=== PATIENT | male | born 1995 | race Caucasian/White ===

== ENCOUNTER 2019-12-04 20:55 | Emergency (ER) | payer OTHER ==
--- NOTE | 2019-12-04 21:40 | ER Document Report ---
ED Medical Screen (RME) - General Chief Complaint: Fever Stated Complaint: FEVER,SHORTNESS OF BREATH,CHILLS,COUGHING RED STUF Time Seen by Provider: 12/04/19 21:33 Notes: 24-year-old male presents with fever, dyspnea, productive cough with "red stuff," and abdominal pain since yesterday. T-max 103. Patient states left upper quadrant pain. Patient also states sore throat. Lungs clear to auscultation bilaterally. Regular rate and rhythm. Abdomen soft, nontender. Pharynx mildly erythematous, tonsils mild hypertrophy with exudates. I have greeted and performed a rapid initial assessment of this patient. A comprehensive ED assessment and evaluation of the patient, analysis of test results and completion of the medical decision making process with be conducted by additional ED providers. - Related Data Allergies/Adverse Reactions: No Known Allergies Allergy (Unverified 12/04/19 21:33) Physical Exam - Vital signs Vitals: Temp Pulse Resp BP Pulse Ox 99.8 F 114 H 20 131/83 H 97 12/04/19 21:06 12/04/19 21:06 12/04/19 21:06 12/04/19 21:06 12/04/19 21:06 Course - Vital Signs Vital signs: Temp Pulse Resp BP Pulse Ox 99.8 F 114 H 20 131/83 H 97 12/04/19 21:06 12/04/19 21:06 12/04/19 21:06 12/04/19 21:06 12/04/19 21:06
--- NOTE | 2019-12-04 22:15 | RADIOLOGY REPORT (SQ) ---
EXAM DESCRIPTION: XR CHEST 2 VIEWS COMPLETED DATE/TME: 12/04/2019 21:38 CLINICAL HISTORY: 24 years, Male, cough, fever COMPARISON: None. NUMBER OF VIEWS: 2 TECHNIQUE: LIMITATIONS: None. FINDINGS: Cardiomediastinal silhouette is normal. Lungs are grossly clear. No effusion. No pneumothorax. Visualized bones are unremarkable IMPRESSION: No acute intrathoracic process is identified. copyright 2010 [employer]- All Rights Reserved
--- NOTE | 2019-12-04 23:43 | ER Document Report ---
ED General - General Chief Complaint: Fever Stated Complaint: FEVER,SHORTNESS OF BREATH,CHILLS,COUGHING RED STUF Time Seen by Provider: 12/04/19 21:33 Primary Care Provider: DOLORES NIEVES [Primary Care Provider] - 12/08/19 - [facility] Notes: Patient is a 24-year-old male who presents to the ED complaining of nasal congestion/discharge, dry nonproductive cough, sore throat, chills, body ache 4 days. Patient states that he is still eating and drinking without difficulties, but does have a decreased p.o. intake. Patient states that he does feel shortness of breath on occasion, but not consistently. He is still urinating normally having normal bowel movements. Patient has been using some [id number] meds for symptoms. He denies any significant past medical history including cardiopulmonary history and immunocompromised conditions. Patient denies any smoking or IV drug use. Denies any prolonged immobilization, distance travel, recent surgery/trauma, personal cancer history, hormone use, smoking, or previous DVT/PE. Denies any current headache, neck pain, chest pain, palpitations, syncope, wheeze, abdominal pain, nausea/vomiting/diarrhea, urinary retention, dysuria, hematuria, or rash. - Related Data Allergies/Adverse Reactions: No Known Allergies Allergy (Unverified 12/04/19 21:33) Past Medical History - Social History Smoking Status: Former Smoker Family History: Reviewed & Not Pertinent Patient has suicidal ideation: No Patient has homicidal ideation: No Review of Systems - Review of Systems -: Yes All other systems reviewed and negative Physical Exam - Vital signs Vitals: Temp Pulse Resp BP Pulse Ox 99.8 F 114 H 20 131/83 H 97 12/04/19 21:06 12/04/19 21:06 12/04/19 21:06 12/04/19 21:06 12/04/19 21:06 - Notes Notes: PHYSICAL EXAMINATION: GENERAL: Well-appearing, well-nourished and in no acute distress. A&Ox4. Answers questions appropriately. Moves comfortably w/o notable distress HEAD: Atraumatic, normocephalic. EYES: Pupils equal round and reactive to light, extraocular movements intact, sclera anicteric, conjunctiva are normal. ENT: EAC clear b/l. TM's intact b/l without erythema, fluid, or perforation. Nares patent and with clear discharge. oropharynx no erythema without exudates. 2+ tonsilar hypertrophy with erythema and b/l exudate. No palatine shift. Uvula midline. No tongue protrusion. No drooling, hoarseness, or airway compromise. Moist mucous membranes. No sinus tenderness. NECK: Normal range of motion, supple without lymphadenopathy. No rigidi ty/meningismus. LUNGS: Breath sounds clear to auscultation bilaterally and equal. No wheezes rales or rhonchi. No retractions HEART: Regular rate and rhythm without murmurs, rubs, gallops. ABDOMEN: Soft, nontender, nondistended abdomen. No guarding, no rebound. Normal bowel sounds present. No CVA tenderness bilaterally. Extremities: No edema. Daniel negative bilaterally. No lower extremity asymmetry. NEUROLOGICAL: Normal speech, normal gait. PSYCH: Normal mood, normal affect. SKIN: Warm, Dry, normal turgor, no rashes or lesions noted. Course - Re-evaluation Re-evalutation: 12/05/19 01:[address] Quijano who is in agreement with dispo/plan: Patient is an afebrile, well-hydrated, 24-year-old male who presents to the emergency department with an acute URI/pharyngitis, suspect viral. Vitals are a cceptable without significant tachycardia, tachypnea, or hypoxia. PE is otherwise unremarkable. He is nontoxic-appearing and is tolerating p.o. without difficulty. Lungs are clear to auscultation bilaterally. Labs acceptable. CXR neg. D-dimer negative. [place]/influenza neg. Rapid strep was negative with a throat culture pending. No further labs or imaging warranted at this time. Low suspicion for any ACS, PE, pneumothorax, pericarditis, dissection, meningitis, sepsis, peritonsillar/pharyngeal abscess, respiratory compromise, Antonio's, pneumonia, or other emergent systemic condition at this time. Patient is aware this condition can change from initial presentation and he needs to monitor symptoms closely. Conservative measures otherwise for symptoms. Recheck with your PCM in 2-3 days. Return to the ED with any worsening/concerning symptoms otherwise as reviewed in discharge. Patient is in agreement. - Vital Signs Vital signs: Temp Pulse Resp BP Pulse Ox 98.7 F 114 H 22 H 113/79 98 12/04/19 23:26 12/04/19 23:26 12/05/19 01:01 12/05/19 01:00 12/05/19 01:01 - Laboratory Result Diagrams: 12/04/19 23:21 12/04/19 23:21 Laboratory results interpreted by me: 12/04/19 12/04/19 23:21 23:21 WBC 11.9 H Absolute Neuts (auto) 9.0 H Sodium 136.5 L Chloride 97 L Lipase < 10.0 L Discharge - Discharge Clinical Impression: Acute URI Condition: Stable Disposition: HOME, SELF-CARE Instructions: Upper Respiratory Illness ([facility]), Viral Syndrome ([facility]) Additional Instructions: Maintain adequate fluid intake tylenol/ibuprofen as needed alternating every 3 hours for fever/body ache over the counter cold medication as needed for symptoms Humidified air may help Wash your hands regularly Wear a mask when coughing F/u: with your PCM in 2-3 days for a recheck Return to the ED with any fever, altered mental status/behavior, chest pain, palpitations, syncope, headache, neck pain/stiffness, shortness of breath, chest pains, wheezing, drooling, trouble swallowing/breathing, abdominal pain, n/v/d, rash, or worsening/concerning symptoms otherwise. Prescriptions: Albuterol Sulfate [Proair HFA Inhalation Aerosol 8.5 gm MDI] 2 puff IH Q4H PRN #1 mdi PRN Reason: Referrals: [facility] [Primary Care Provider] - 12/08/19
[2019-12-04 23:46] LABS: ABSOLUTE EOSINOPHILS # (AUTO) 0.1 10^3/uL (0.0-0.6); ABSOLUTE LYMPHOCYTES (AUTO) 1.7 10^3/uL (0.5-4.7); ABSOLUTE MONOCYTES (AUTO) 1.1 10^3/uL (0.1-1.4); BASOPHILS % (AUTO) 0.3 % (0-2); EOSINOPHILS % (AUTO) 0.6 % (0-6); HEMATOCRIT 45.7 % (37.9-51.0); HEMOGLOBIN 16.2 g/dL (13.5-17.0); LYMPHOCYTES % (AUTO) 14.6 % (13-45); MEAN CORPUSCULAR HEMOGLOBIN 31.6 pg (27.0-33.4); MEAN CORPUSCULAR HGB CONC 35.4 g/dL (32.0-36.0); MEAN CORPUSCULAR VOLUME 89 fl (80-97); MONOCYTES % (AUTO) 9.5 % (3-13); PLATELET COUNT 158 10^3/uL (150-450); RED BLOOD COUNT 5.12 10^6/uL (4.35-5.55); RED CELL DISTRIBUTION WIDTH 12.1 % (11.5-14.0); TOTAL CELLS COUNTED % (AUTO) 100 %; WHITE BLOOD COUNT 11.9 10^3/uL (4.0-10.5)
[2019-12-05] LABS: ALBUMIN 4.2 g/dL (3.5-5.0); ALKALINE PHOSPHATASE 70 U/L (38-126); ANION GAP 11 (5-19); ASPARTATE AMINO TRANSFERASE 33 U/L (17-59); BILIRUBIN,DIRECT 0.2 mg/dL (0.0-0.4); BILIRUBIN,TOTAL 1.1 mg/dL (0.2-1.3); BLOOD UREA NITROGEN 13 mg/dL (7-20); CARBON DIOXIDE 29 mmol/L (22-30); CHLORIDE 97 mmol/L (98-107); GLUCOSE 89 mg/dL (75-110); POTASSIUM 3.7 mmol/L (3.6-5.0); TOTAL PROTEIN 7.6 g/dL (6.3-8.2)
[2019-12-05 00:03] LABS: A TYPE INFLUENZA AG NEGATIVE (NEGATIVE); B INFLUENZA AG NEGATIVE (NEGATIVE)
[2019-12-05] MEDS: NORMAL SALINE 1000 ML 1,000 ML IV PRN ×2 (00:30→01:00)
[2019-12-05 02:29] VITALS: BP 133/70
--- NOTE | 2019-12-05 07:18 | EKG REPORT ---
SEVERITY:- BORDERLINE ECG - SINUS TACHYCARDIA BORDERLINE ST ELEVATION, INFERIOR LEADS, CLINICAL CORRELATION NEEDED, CONSIDER PERICARDITIS. : Confirmed by: Lee Sandy MD 05-Dec-2019 07:18:20
== END 2019-12-05 02:31 | disposition home or self-care (01) ==
LOC: ER 20:55
DX: J06.9 Acute upper respiratory infection, unspecified (principal); R50.9 Fever, unspecified; R06.02 Shortness of breath; R09.81 Nasal congestion
CPT/HCPCS: 93005; 99285; 96360; 36415; 87070; 87880; 83690; 85025; 87077; 86308; 80053; 85379; 87804; 71046; 93010; J7030

== ENCOUNTER 2020-06-15 05:04 | Emergency (ER) | payer OTHER ==
[2020-06-15] MEDS ORDERED: NORMAL SALINE 500 ML IV ONE (05:59)
--- NOTE | 2020-06-15 06:01 | ER Document Report ---
ED Medical Screen (RME) - General Chief Complaint: Possible Overdose Stated Complaint: POSSIBLE OVERDOSE Time Seen by Provider: 06/15/20 05:54 Primary Care Provider: LIZBETH,DOLORES [Primary Care Provider] - Follow up as needed Notes: 24-year-old male chief complaint of bizarre behavior and altered mental status. Brother states that he came down to visit him, he states that he is a hard-core alcoholic and he stopped drinking alcohol when he came down to visit, he states that he did not drink for several days but since he has been talking in a nonsensical fashion, he has been delirious, he randomly moans and says random statements. Brother states he did not see him do any drugs although he is worried that he did. Brother denies injuries, vomiting, or other medical history. Patient will stare at me wide-eyed but will not answer any questions or follow directions appropriately. - Related Data Allergies/Adverse Reactions: No Known Allergies Allergy (Unverified 12/04/19 21:33) Home Medications: sertraline Past Medical History - Social History Frequency of alcohol use: quit drinking 2 wks ago Drug Abuse: Heroin Physical Exam - Vital signs Vitals: Temp Pulse Resp BP Pulse Ox 98.6 F 125 H 22 H 146/113 H 99 06/15/20 05:06/15/20 05:06/15/20 05:06/15/20 05:06/15/20 05:29 - Neurological [place]wood Coma Scale Eye Opening: Spontaneous [place]wood Coma Scale Verbal: Incomprehensible [place]wood Coma Scale Motor: Localizes to Pain Underwood Coma Scale Total: 11 Course - Re-evaluation Re-evalutation: Patient is awake but delirious, unable to follow my commands, stares at me but does not interact with me. No signs of trauma. Patient is mildly tachycardic. Work-up pending. Moving closer to the nursing station for better observation. I have greeted and performed a rapid initial assessment of this patient. A comprehensive ED assessment and evaluation of the patient, analysis of test results and completion of the medical decision making process will be conducted by additional ED providers. - Vital Signs Vital signs: Temp Pulse Resp BP Pulse Ox 98.6 F 125 H 22 H 146/113 H 99 06/15/20 05:29 06/15/20 05:06/15/20 05:29 06/15/20 05:29 06/15/20 05:29 Doctor's Discharge - Discharge Referrals: [facility] [Primary [facility]] - Follow up as needed
[2020-06-15] MEDS ORDERED: LORAZEPAM INJ 2 MG/1 ML VIAL IV ONE ×2 (06:05→16:56)
[2020-06-15 06:44] LABS: ABSOLUTE BASOPHILS # (AUTO) 0.1 10^3/uL (0.0-0.2); ABSOLUTE EOSINOPHILS # (AUTO) 0.1 10^3/uL (0.0-0.6); ABSOLUTE LYMPHOCYTES (AUTO) 3.7 10^3/uL (0.5-4.7); ABSOLUTE NEUT (AUTO) 5.8 10^3/uL (1.7-8.2); BASOPHILS % (AUTO) 0.5 % (0-2); EOSINOPHILS % (AUTO) 1.3 % (0-6); HEMATOCRIT 47.9 % (37.9-51.0); HEMOGLOBIN 17.2 g/dL (13.5-17.0); LYMPHOCYTES % (AUTO) 34.9 % (13-45); MEAN CORPUSCULAR HEMOGLOBIN 32.5 pg (27.0-33.4); MEAN CORPUSCULAR VOLUME 90 fl (80-97); MONOCYTES % (AUTO) 9.6 % (3-13); PLATELET COUNT 202 10^3/uL (150-450); SEGMENTED NEUTROPHILS % (AUTO) 53.7 % (42-78); TOTAL CELLS COUNTED % (AUTO) 100 %; WHITE BLOOD COUNT 10.7 10^3/uL (4.0-10.5)
[2020-06-15 06:51] LABS: ALBUMIN 5.2 g/dL (3.5-5.0); ALKALINE PHOSPHATASE 60 U/L (38-126); ANION GAP 14 (5-19); ASPARTATE AMINO TRANSFERASE 36 U/L (17-59); BILIRUBIN,DIRECT 0.2 mg/dL (0.0-0.4); BILIRUBIN,TOTAL 1.1 mg/dL (0.2-1.3); BLOOD UREA NITROGEN 9 mg/dL (7-20); CALCIUM 9.9 mg/dL (8.4-10.2); CARBON DIOXIDE 24 mmol/L (22-30); CHLORIDE 102 mmol/L (98-107); GLUCOSE 109 mg/dL (75-110); POTASSIUM 3.4 mmol/L (3.6-5.0); TOTAL PROTEIN 8.4 g/dL (6.3-8.2)
[2020-06-15 06:57] LABS: ACETAMINOPHEN < 10 ug/mL (10-30); ALCOHOL < 10 mg/dL (NONE DETECTED); SALICYLATE < 1.0 mg/dL (2.0-20.0)
--- NOTE | 2020-06-15 07:11 | RADIOLOGY REPORT (SQ) ---
EXAM DESCRIPTION: XR CHEST 1 VIEW COMPLETED DATE/TME: 06/15/2020 05:58 CLINICAL HISTORY: Delirium COMPARISON: 12/04/2019 FINDINGS: Single frontal radiograph view of the chest. Cardiomediastinal silhouette: Normal size and contour. Leads overlie the chest. Lungs: No consolidation, pneumothorax, or pleural effusion. Low lung volumes. Bones: No acute osseous abnormality. Upper abdomen: No abnormality identified. IMPRESSION: 1. No acute pulmonary process identified.
--- NOTE | 2020-06-15 07:23 | RADIOLOGY REPORT (SQ) ---
CT of the head: 06/15/2020 6:21 AM CDT HISTORY: 24-year-old patient with delirium. COMPARISON: None available TECHNIQUE: Multiple axial contiguous images were obtained through the head without intravenous contrast administered. This exam was performed according to our departmental dose-optimization program, which includes automated exposure control, adjustment of the mA and/or KV according to the patient's size and/or use of iterative reconstruction technique. FINDINGS: The ventricles are within normal limits for size. Both orbits appear unremarkable. The mastoid air cells appear clear. There is mild mucoperiosteal thickening of the ethmoid sinuses. The calvarium is intact. No extra-axial fluid collection is seen. The [place]-white matter differentiation is within normal limits. No midline shift or mass effect is apparent. There are no findings to suggest acute intracranial hemorrhage. IMPRESSION: No acute intracranial hemorrhage is seen.
--- NOTE | 2020-06-15 08:21 | ER Document Report ---
ED Substance Abuse / Acc. OD <LOPEZ BOLANOS - Last Filed: 06/17/20 14:26> - General Mode of Arrival: Ambulatory Information source: Patient, Relative Cannot obtain history due to: Altered mental status - HPI Onset: Other - 3 days Onset/Duration: Persistent Quality of pain: No pain Similar symptoms previously: No Recently seen / treated by doctor: No - Related Data Home Medications: sertraline <TODD SPENCER - Last Filed: 06/17/20 19:33> - General Chief Complaint: Possible Overdose Stated Complaint: POSSIBLE OVERDOSE Time Seen by Provider: 06/15/20 05:54 Primary Care Provider: [facility] [Outside] - Follow up as needed [facility] [Outside] - Follow up as needed [facility] [Primary Care Provider] - 06/20/20 9:00 am Notes: Presents with bizarre behavior in which patient will occasionally speak with family members and will go into staring episodes and does not respond to them. Patient has been refusing to go to sleep for the past 2 days for fear of turning the lights off. Patient does have a history of previous alcohol abuse but quit drinking 2 weeks ago. Family states that patient may have taken for sertraline tablets, although this is an old prescription for patient for which she has not been taking recently. Family states that patient had the symptoms for the past 3 days. Patient has not otherwise been sick recently. (TODD SPENCER) - Related Data Allergies/Adverse Reactions: No Known Allergies Allergy (Unverified 12/04/19 21:33) Past Medical History - General Information source: Patient, Relative - Social History Smoking Status: Unknown if Ever Smoked Frequency of alcohol use: quit drinking 2 wks ago Drug Abuse: Heroin Lives with: Family Family History: Reviewed & Not Pertinent Patient has homicidal ideation: No Psychiatric Medical History: Reports: Hx Anxiety, Hx Depression Surgical Hx: Negative <TODD SPENCER - Last Filed: 06/17/20 19:33> Review of Systems - Review of Systems -: Yes ROS unobtainable due to patient's medical condition <TODD SPENCER - Last Filed: 06/17/20 19:33> Physical Exam - General General appearance: Lethargic, Other - arouses easily to tactile stimulation In distress: None - HEENT Head: Normocephalic, Atraumatic Eyes: Normal Conjunctiva: Normal Neck: Normal, Supple - Respiratory Respiratory status: No respiratory distress Chest status: Nontender Breath sounds: Normal. No: Rales, Rhonchi, Stridor, Wheezing Chest palpation: Normal - Cardiovascular Rhythm: Regular Heart sounds: S1 appreciated, S2 appreciated - Abdominal Inspection: Normal Distension: No distension Tenderness: Nontender - Back Back: Normal, Nontender. No: CVA tenderness - Extremities General upper extremity: Normal inspection, Normal strength General lower extremity: Normal inspection, Normal strength - Neurological Cognition: Confused - Skin Skin Temperature: Warm Skin Moisture: Dry Skin Color: Normal <TODD SPENCER - Last Filed: 06/17/20 19:33> - Vital signs Vitals: Resp Pulse Ox 16 100 06/15/20 05:25 06/15/20 05:25 Course - Laboratory Result Diagrams: 06/15/20 05:31 06/15/20 05:31 <LOPEZ BOLANOS - Last Filed: 06/17/20 14:26> - Laboratory Result Diagrams: 06/15/20 05:31 06/15/20 05:31 <TODD SPENCER - Last Filed: 06/17/20 19:33> - Re-evaluation Re-evalutation: 06/15/20 10:27 Patient opens eyes and looks at provider although refuses to answer any questions. Vital signs stable at this time. 06/15/20 10:30 RN states that patient was responding to questions with short word answers appropriately. Patient advised of need for urinalysis. Patient is requesting the door to room be left open at this time. 06/15/20 13:58 Patient continues to refuse to answer questions posed by behavioral health team or myself at this time. Patient did make the comment that he did not like the color of her scrubs and that he passed Osvaldo Michael to leave the room without having any conversation with her otherwise. Patient does not respond to questioning. Consulted with Dr. Trujillo who did examine patient. She advises having patient placed on IVC for further psychiatric evaluation at this time for acute psychosis with paranoia. 06/15/20 16:47 Patient assisted in room to use urinal, patient voided dark urine. Patient continues nonverbal. Patient continually repositioning in room. 08/22/20 18:11 Brother came to visit patient he does report that patient quit drinking alcohol 2 weeks ago and has not had any alcohol since then. Mother does state that patient has not had any sleep for the past 2 days and that he was too afraid to go to sleep because he did not want the lights shut off. Brother states that patient was abnormal and then periodically would just stare and would not respond and would occasionally act abnormal. Brother states that he has been acting like this for the past 3 days. Behavioral health team recommend giving Thorazine 50 mg every 6 hours and Cogen tin 1 mg daily. 06/15/20 20:13 Report and handoff given to STEPHON Alegria (TODD SPENCER) - Vital Signs Vital signs: Temp Pulse Resp BP Pulse Ox 98.1 F 114 H 20 141/82 H 98 06/17/20 15:26 06/17/20 15:26 06/17/20 15:26 06/17/20 15:26 06/17/20 15:26 - Laboratory Laboratory results interpreted by me: 06/15/20 06/15/20 06/15/20 05:31 05:31 05:31 WBC 10.7 H Hgb 17.2 H Potassium 3.4 L Creatine Kinase 566 H Total Protein 8.4 H Albumin 5.2 H Urine Protein Urine Ketones Urine Blood Salicylates < 1.0 L Acetaminophen < 10 L 06/15/20 06/16/20 06/16/20 16:40 11:04 22:36 WBC Hgb Potassium Creatine Kinase 777 H 660 H Total Protein Albumin Urine Protein 30 H Urine Ketones 80 H Urine Blood SMALL H Salicylates Acetaminophen Discharge <LOPEZ BOLANOS - Last Filed: 06/17/20 14:26> <TODD SPENCER - Last Filed: 06/17/20 19:33> - Discharge Clinical Impression: Has recently quit alcohol use Altered mental status Qualifiers: Altered mental status type: unspecified Qualified Code(s): R41.82 - Altered mental status, unspecified Overdose Qualifiers: Encounter type: initial encounter Injury intent: undetermined intent Qualified Code(s): T50.904A - Poisoning by unspecified drugs, medicaments and biological substances, undetermined, initial encounter Condition: Stable Disposition: HOME, SELF-CARE Additional Instructions: You have been evaluated by both medical and behavioral health teams for altered mental status, overdose of four Zoloft 100MG, and 2 weeks ago quitting use of alcohol abruptly. You have been deemed appropriate for discharge. While in the emergency department you received the following services: Medical screening and assessment, nursing services, dietary services, pharmacological services, one-on-one counseling and/or psychotherapy, environmental services, and continuous observation by a patient director food safety. Medication recommendations have been have been provided and are as follows: Thorazine 50MG twice a day for psychosis/altered mental status Cogentin 1MG daily to curb tremor side effects often associated with antipsychotic medications Please take your medications as prescribe and do not stop these medications without discussion with your prescribing physician. You should only take these medications until you see the 's Affairs doctor, any old medications should be disposed of properly. The use of old medications can be dangerous and when you take more than is directed it is considered an overdose which can also cause mental health symptoms. Abrupt cessation of alcohol can cause psychosis, sleep disturbance, depression, anxiety and mood issues. Often times medications can be helpful. Altered Mental Status An altered mental status is a change in the normal functioning of the brain. This alteration of function can range from minor decreased brain function with some forgetfulness and confusion to complete loss of consciousness and coma. There are many possible causes of an altered mental status and include brain injuries such as trauma or strokes, problems with oxygen supply to the brain, fever and infections of the brain and/or elsewhere in the body, metabolic abnormalities such as low or high blood sugar, overdoses or excessive medication ingestion, and mental and psychiatric illnesses. Sometimes the altered mental status resolves and a definite cause is not determined. If a cause for your altered mental status was found, it has likely been corrected. Your evaluation has not shown any condition that requires that you be admitted to the hospital. It is believed that you are safe to leave and return to your home. If you have a return of your symptoms, you should return for re-evaluation. Overdose You have taken more medication than you should have. After your evaluation and care, it is felt that your overdose is not likely to be harmful or of any significant consequences to you and you are being discharged. In the future, you should be careful not to take more medications than what is prescribed for you. Although your overdose does not seem to be of any danger to you at this time, if you develop any unusual or unexpected symptoms after your discharge, you should return to the Emergency Department immediately for re-evaluation. Follow up: You have been scheduled an appointment with the [facility] on [address] with Dr. Cast on 06/20/2020 at 0900. You are recommended to attend this appointment for ongoing services and supports. You have been provided two local [facility] mobile crisis numbers as well as the '[facility] Crisis Line. If your symptoms continue or worsen contact your physician immediately, utilize mobile crisis or return to the Emergency Department. Prescriptions: Benztropine Mesylate [Cogentin 1 mg Tablet] 1 mg PO DAILY #7 tablet Chlorpromazine HCl [Thorazine 50 mg Tablet] 50 mg PO Q12 #14 tablet Referrals: [facility] [Primary [facility]] - 06/20/20 9:00 am [facility] [Outside] - Follow up as needed [facility] [Outside] - Follow up as needed
[2020-06-15] MEDS ORDERED: THIAMINE HCL 100 MG, FOLIC ACID 1 MG in NORMAL SALINE 250 ML IV ONE (08:23)
--- NOTE | 2020-06-15 14:01 | ER Document Report ---
Doctor's Note Notes: 06/15/20 13:59 Patient seen in conjunction with the nurse practitioner, please see her note to correlate with mine. Evidently the patient came in with altered mental status. There was some report as to whether or not he may have overdosed on his Zoloft. He does have a history of alcohol abuse. I went into evaluate the patient. He has a very strange affect. He will only intermittently answer questions. He stares motionless, and in intimidating manner, at this examiner multiple times. He does admit to having a drinking problem. He then becomes tearful, states he has love for his girlfriend. I was able to interview the girlfriend. She states that he was normal Wednesday night, then started acting like this on . She states she does not believe he is slept. She states he locked himself in a room and was screaming, acting extremely paranoid. She knows him to have a long-term alcohol abuse issue. Patient will only intermittently interact with this examiner, only intermittently participate with his care. He is exhibiting extremely paranoid and abnormal behavior, I am concerned that he is exhibiting signs of an acute psychosis. IVC paperwork being filled out. Patient will be held for further evaluation.
--- NOTE | 2020-06-15 14:05 | EKG REPORT ---
SEVERITY:- OTHERWISE NORMAL ECG - SINUS TACHYCARDIA : Confirmed by: Felecia Sandy 15-Jun-2020 14:04:50
[2020-06-15] MEDS ORDERED: NICOTINE 21 MG/24 HR PATCH.TD24 TD ONE (15:23)
[2020-06-15] MEDS ORDERED: LORAZEPAM INJ 2 MG/1 ML VIAL IM ONE (16:46)
[2020-06-15] MEDS ORDERED: NORMAL SALINE 1000 ML 1,000 ML IV ONE (16:56)
[2020-06-15 17:35] LABS: APPEARANCE,URINE CLEAR; BILIRUBIN,URINE NEGATIVE (NEGATIVE); COLOR,URINE YELLOW; GLUCOSE, URINE NEGATIVE (NEGATIVE); KETONES,URINE 80 mg/dL (NEGATIVE); LEUKOCYTE ESTERASE,URINE NEGATIVE (NEGATIVE); NITRITE,URINE NEGATIVE (NEGATIVE); PROTEIN,URINE 30 mg/dL (NEGATIVE); URINE SPECIFIC GRAVITY 1.023; UROBILINOGEN,URINE NEGATIVE mg/dL (<2.0)
[2020-06-15 17:43] LABS: URINE AMPHETAMINES SCREEN NEGATIVE; URINE BARBITURATES SCREEN NEGATIVE; URINE BENZODIAZEPINES SCREEN NEGATIVE; URINE COCAINE SCREEN NEGATIVE; URINE MARIJUANA (THC) SCREEN NEGATIVE; URINE METHADONE SCREEN NEGATIVE; URINE PHENCYCLIDINE SCREEN NEGATIVE
[2020-06-15] MEDS ORDERED: CHLORPROMAZINE HCL INJ 25 MG/1 ML AMPULE IM PRN (18:12)
[2020-06-15] MEDS ORDERED: CHLORPROMAZINE HCL INJ 25 MG/1 ML AMPULE IM SCH (18:15)
[2020-06-15] MEDS: BENZTROPINE MESYLATE INJ 2 MG/2 ML AMPULE IM SCH (20:30)
[2020-06-16] MEDS: BENZTROPINE MESYLATE INJ 2 MG/2 ML AMPULE IM SCH (10:19)
[2020-06-16] MEDS ORDERED: NORMAL SALINE 1000 ML 1,000 ML IV ONE ×2 (12:07→12:08)
--- NOTE | 2020-06-16 23:40 | ER Document Report ---
Doctor's Note Notes: 06/16/20 PHYSICAL EXAMINATION: GENERAL: Appears well, healthy, well-nourished, no acute distress. LUNGS: Equal breath sounds bilaterally and clear to auscultation. No wheezes rales or rhonchi. CARDIOVASCULAR: S1-S2, regular rate, regular rhythm. Radial pulses 2+, normal. ABDOMEN: Normoactive bowel sounds. Soft, nontender, no guarding, no rebound tenderness, and no masses palpated. PSYCH: Flat affect. Patient denies any suicidal or homicidal ideation, but still continues to have an odd mood. He stares off and will take a few minutes to answer questions. Sometimes questions need to be asked more than once. CK was elevated. Will recheck CK, as the [facility] is requesting this and plan is for the [facility] to go to the [facility] for inpatient [facility]. CK was elevated, higher than it was before. We will give the patient a liter of IV fluids and will repeat CK.
[2020-06-17] MEDS: BENZTROPINE MESYLATE INJ 2 MG/2 ML AMPULE IM SCH (11:17)
--- NOTE | 2020-06-17 13:25 | ER Document Report ---
Doctor's Note Notes: 06/17/20 13:15 PHYSICAL EXAMINATION: GENERAL: Well-appearing and in no acute distress. HEAD: Atraumatic, normocephalic. EYES: sclera anicteric, conjunctiva are normal. ENT: nares patent. Moist mucous membranes. NECK: Normal range of motion, supple without lymphadenopathy LUNGS: CTAB and equal. No wheezes rales or rhonchi. HEART: Regular rate and rhythm without murmurs ABDOMEN: Soft, nontender, normal bowel sounds EXTREMITIES: Normal range of motion, no pitting edema. No cyanosis. BACK: No CVA tenderness NEUROLOGICAL: Cranial nerves grossly intact. PSYCH: Flat affect SKIN: Warm, Dry, normal turgor, no rashes or lesions noted Provider offered patient a nicotine patch, patient declined stating that he just wants to leave. Patient reportedly has been nonverbal with intermittent odd behaviors through out his visit, although presently is answering questions appropriately. 06/17/20 14:56 Behavioral health team does not feel that patient meets IVC criteria at this time. Patient is not suicidal or homicidal. Will plan for discharge with prescription for Thorazine and Cogentin for 7-day prescription. Patient will be following up on outpatient basis with the [facility], patient and his brother are in agreement with this plan of care per behavioral health team.
[2020-06-17] MEDS ORDERED: CHLORPROMAZINE HCL 50 MG TABLET PO SCH (14:00)
[2020-06-17 15:30] VITALS: BP 141/82
[2020-06-18] MEDS ORDERED: BENZTROPINE MESYLATE 1 MG TABLET PO SCH (10:00)
--- NOTE | 2020-06-19 12:15 | PSYCHOLOGICAL NOTE ---
Psych Note - Psych Note Date seen by psych provider: 06/17/20 Time seen by psych provider: 11:46 - Re evaluation with patient from [id number]. Reassessment with patient and brother present at 1330. Coordination with the local [facility] at 1422. Psych Note: Patient is a 24 year old male in the Emergency Department on a FULL IVC for altered mental status, possible overdose of four Zoloft 100MG from , abruptly ceased drinking alcohol about 2 weeks ago, and no sleep in 2 days. Patient was laying in bed. In one hand he held a vomit bag and in the other he held a memorial card from his grandfather's . He kept moving his hands about, often wanting touch stimulation as evidenced by trying to rub this clinician's hand. He would mumble sentences or answers with his mouth closed making it almost impossible to understand him. He was tearful and did state "I want my family." He denied previous mental health hospitalizations. He was tearful several times throughout evaluation. Attending ED Physician spoke to this clinician at 1305. She stated patient said he wanted to smoke, was not interested in a Nicotine Patch, and just wanted to get home. She stated patient talks with brother present. At 1330 talked with patient with brother present in room. Patient was able to form words and say them. He answered questions appropriately when addressed. Patient was interactive and more engaged with brother present. He rubbed his brothers arm again as if for touch stimulation. Brother stated he got rid old medications in the house as [facility]. He stated patient "was drinking 4 or more tall boys of [employer] a night then just stopped 2 weeks ago." Bother stated he is in town from [place] and will stay longer to help patient and his family (, child) out. Patient was alert and oriented to self, person, place, and situation. Mood was euthymic with congruent affect with brother present, when brother was not present he presented depressed with congruent affect as evidenced by being tearful at times. He denied current suicidal and homicidal ideation. Patient did not appear to be responding to internal stimuli when brother was present as evidenced by fair eye contact and answering questions appropriately when addressed, however when brother was not present he stared off and mumbled with his mouth closed. Thought processes were linear. Conversational speech was within normal limits for rate, tone and prosody. Intellectual abilities are estimated to be average. Insight, judgment and impulse control were fair as evidenced by talking, making fair eye contact, being more engaged and interacting appropriately once brother was present. At 1422 spoke to Osiris with the local [facility]. She noted there is documentation [facility] [address] [facility] and being directed to go to the Emergency Department due to suicidal ideation and report of taking four Zoloft 100MG. Follow up appointment scheduled for 06/20/[address] Cast. Clinical Presentation: Altered Mental Status No sleep in 2 days reportedly took four Zoloft 100MG (old medication of patient's) Abrupt cessation of alcohol 2 weeks ago Medication recommendations made by the psychiatric medication provider Dr. Karl STEVENS., includes: First change when patient would not talk: Add Thorazine 50MG every 8 hours for psychosis Add Cogentin 1MG daily to curb tremor side effects often associated with antipsychotic medications Second change after patient talked with brother present and arranged plan of care for discharge: Provide prescriptions Thorazine 50MG every 12 hours for psychosis Cogentin 1MG daily to curb tremor side effects often associated with antipsychotic medications Impression/Plan: Patient is cleared from acute psychiatric services. Recommendation to RESCIND Full IVC. Patient at first was not talking but once brother was present he was more engaged, answered questions appropriately, and interacted. Scheduled follow up with the local [facility] for 06/20/[address] Cast. Provided patient and brother with the outpatient mental health sheet which documented appointment date and time, as well as highlighted both local mobile crisis numbers, and listed [facility]. Brother stated he would stay in town to help patient and his family (, child). Brother agreed for him or another adult to be in charge of medications and administration. Brother stated he had already discarded old medications. Consulted with Dr. Ochoa regarding the management and care of patient. ED Physician in agreement with recommendations.
== END 2020-06-17 15:30 | disposition home or self-care (01) ==
LOC: ER 05:04
DX: T50.904A Poisoning by unspecified drugs, medicaments and biological substances, undetermined, initial encounter (principal); F11.10 Opioid abuse, uncomplicated; F32.9 Major depressive disorder, single episode, unspecified; F41.9 Anxiety disorder, unspecified; T43.226A Underdosing of selective serotonin reuptake inhibitors, initial encounter; Z91.14 Patient's other noncompliance with medication regimen; R41.0 Disorientation, unspecified; Z86.59 Personal history of other mental and behavioral disorders; R39.89 Other symptoms and signs involving the genitourinary system; R79.89 Other specified abnormal findings of blood chemistry; Z72.820 Sleep deprivation
CPT/HCPCS: 93005; 99285; 96372; 96361; 96375; 96365; 36415; 80307 ×4; 82550; 85025; 80053; 81001; 71045; 70450; 93010; J0515 ×3; J3230; J3490 ×2; J2060; J3411; J7030 ×2; J7050; J7040